=== PATIENT | female | born 1965 | race Two or more races ===

== ENCOUNTER 2024-02-02 07:32 | Outpatient (OUT) | payer OTHER, SELFPAY ==
--- NOTE | 2024-02-02 07:35 | MM_ITS ---
Patient Name: MATHIEU DUNNE MR#: [id number] : 1965 Exam Date: 02/02/2024 Ordering Doctor: DR PETE RESENDIZ RADIOLOGY REPORT PROCEDURE: MM TOMOSYNTHESIS SCREENING BI COMPARISON: MG MAMM SCREEN 3D MARK CAD, 01/30/2023. MG MAMM SCREEN 3D MARK CAD, 04/23/2021. MG MAMM SCREEN MARK W CAD, 08/28/2019. MG MAMM MARK SCRN W CAD DIG, 06/03/2013. INDICATIONS: Screening Calculator Name NCI Breast Cancer Risk Assessment Tool 5 Year Breast Cancer Risk 2.30% Lifetime Breast Cancer Risk 13.80% Personal Breast Cancer No Personal Ovarian Cancer No Treatments None Family Cancers Mother with breast cancer at age 40. LOCATION: The [facility] BREAST COMPOSITION: The breasts are heterogeneously dense,which may obscure small masses. FINDINGS: DIAGNOSTIC CATEGORY 2--BENIGN FINDING: RIGHT BREAST: No significant suspicious finding. No significant change has occurred. LEFT BREAST: Stable architectural distortion/scarring upper inner quadrant with associated biopsy marker clip. No significant change has occurred. RECOMMENDATIONS: ROUTINE MAMMOGRAM AND CLINICAL EVALUATION IN 12 MONTHS. PLEASE NOTE: A NORMAL MAMMOGRAM DOES NOT EXCLUDE THE POSSIBILITY OF BREAST CANCER. A CLINICALLY SUSPICIOUS PALPABLE LUMP SHOULD BE BIOPSIED. Dictated by: Ramiro Del Castillo M.D. on 02/02/2024 at 14:37 Approved by: Ramiro Del Castillo M.D. on 02/02/2024 at 14:42
== END 2024-02-02 07:33 | disposition home or self-care (01) ==
LOC: MAMMO 07:32
PROVIDERS: PCP Nurse Practitioner Family; Visit Provider Nurse Practitioner Family
DX: Z12.31 Encounter for screening mammogram for malignant neoplasm of breast (principal); Z80.3 Family history of malignant neoplasm of breast
CPT/HCPCS: 77063; 77067

== ENCOUNTER 2025-02-03 09:08 | Outpatient (OUT) | payer OTHER, SELFPAY ==
--- NOTE | 2025-02-03 09:16 | MM_ITS ---
Patient Name: MATHIEU DUNNE MR#: [id number] : 1965 Exam Date: 02/03/2025 Ordering Doctor: DR KIKI CAMPBELL RADIOLOGY REPORT PROCEDURE: MM TOMOSYNTHESIS SCREENING BI COMPARISON: MM TOMOSYNTHESIS SCREENING BI, 02/02/2024. MG MAMM SCREEN 3D MARK CAD, 01/30/2023. MG MAMM SCREEN 3D MARK CAD, 04/23/2021. MG MAMM MARK SCRN W CAD DIG, 06/03/2013. INDICATIONS: Screening Calculator Name NCI Breast Cancer Risk Assessment Tool 5 Year Breast Cancer Risk 2.30% Lifetime Breast Cancer Risk 13.50% Personal Breast Cancer No Personal Ovarian Cancer No Treatments None Family Cancers Mother with breast cancer at age 40. LOCATION: [facility] BREAST COMPOSITION: The breasts are heterogeneously dense,which may obscure small masses. FINDINGS: RIGHT BREAST: No significant suspicious finding. LEFT BREAST: No significant suspicious finding. Left lumpectomy change. DIAGNOSTIC CATEGORY 1--NEGATIVE. RECOMMENDATIONS: ROUTINE MAMMOGRAM AND CLINICAL EVALUATION IN 12 MONTHS. PLEASE NOTE: A NORMAL MAMMOGRAM DOES NOT EXCLUDE THE POSSIBILITY OF BREAST CANCER. A CLINICALLY SUSPICIOUS PALPABLE LUMP SHOULD BE BIOPSIED. Dictated by: Trent Brown DO on 02/03/2025 at 11:12 Approved by: Trent Brown DO on 02/03/2025 at 13:02
== END 2025-02-03 09:09 | disposition home or self-care (01) ==
LOC: MAMMO 09:09
PROVIDERS: PCP Nurse Practitioner Family; Visit Provider Family Medicine
DX: Z12.31 Encounter for screening mammogram for malignant neoplasm of breast (principal); Z80.3 Family history of malignant neoplasm of breast
CPT/HCPCS: 77063; 77067